=== PATIENT | male | born 1990 | race Two or more races ===

== ENCOUNTER 2021-04-20 09:59 | Emergency (ER) | payer MEDICAID ==
[~2021-04-20] VITALS: Ht 167.6 cm; Wt 97.7 kg
[2021-04-20 10:46] LABS: COVID AG,FIA SOURCE NASOPHARYNGEAL
[2021-04-20 11:42] VITALS: BP 141/91
[2021-04-20] MEDS ORDERED: ACETAMINOPHEN 325 MG TABLET PO ONE (11:45)
== END 2021-04-20 12:08 | disposition home or self-care (01) ==
LOC: EMS 10:07
DX: U07.1 COVID-19 (principal); E11.9 Type 2 diabetes mellitus without complications
CPT/HCPCS: 82962; 99283